=== PATIENT | male | born 1990 | race African-American/Black ===

== ENCOUNTER 2023-01-09 14:38 | Emergency (ER) | payer MEDICAID ==
[~2023-01-09] VITALS: Ht 188 cm; Wt 104.0 kg
[2023-01-09 15:17] VITALS: BP 113/89; PULSE 83; RESP 16; TEMP 98.9; O2SAT 98
[2023-01-09] MEDS ORDERED: LIDOCAINE HCL 1% 20ML VIAL (Pyxis) INJ INFIL ONE (17:30)
[2023-01-09] MEDS ORDERED: IBUP-2029 MT (18:06)
== END 2023-01-09 18:40 | disposition home or self-care (01) ==
LOC: ER 14:44
DX: S81.012A Laceration without foreign body, left knee, initial encounter (principal); J45.909 Unspecified asthma, uncomplicated; Z90.49 Acquired absence of other specified parts of digestive tract; X58.XXXA Exposure to other specified factors, initial encounter; Y93.89 Activity, other specified; Y92.89 Other specified places as the place of occurrence of the external cause; Y99.8 Other external cause status
CPT/HCPCS: 99283; 73562; 12002; J3490